=== PATIENT | male | born 1985 | race Two or more races ===

== ENCOUNTER 2020-02-23 21:56 | Inpatient (IN) | payer OTHER ==
[~2020-02-23] VITALS: Ht 165.1 cm; Wt 72.6 kg
[2020-02-23] MEDS ORDERED: PANADOL (22:53)
[2020-02-23] MEDS ORDERED: ADVIL (22:53)
--- NOTE | 2020-02-23 22:54 | NUR ---
PTE SE RECIBE POR VOMITTING CON LISA DIARREAS CON LISA REFIERE PTE.
--- NOTE | 2020-02-23 23:40 | NUR ---
EVALUA PTE. SE ORIENTA A PTE SOBRE TX MEDICO. PTE REFIERE COMPRENDER. SE REALIZAN MUESTRAS DE LABORATORIO BAJO MEDIDAS ASEPTICAS. SE ADMINISTRAN MEDICAMENTOS SWAPNIL ORDEN MEDICA. SE NOTIFICA KENNY X. SE MANTIENE EN OBSERVACION.
--- NOTE | 2020-02-24 02:55 | NUR ---
SE ENCUENTRA A PTE EN JIM PRESENTANDO VOMITOS CON LISA. SE NOTIFICA A LA CUAL INDICA UBICAR A PTE EN MONITOR CARDIACO. SE UBICA A PTE EN MONITOR CARDIACO, SE ADMINISTRA IV'S Y MEDICAMENTOS SWAPNIL ORDEN MEDICA. SE REALIZA CBC Y SE ENVIA AL LABORATORIO. SE EDUCA A PTE SOBRE TX MEDICO. PTE REFIERE COMPRENDER. SE MANTIENE EN OBSERVACION POR CAMBIOS EN CONDICION MEDICA.
--- NOTE | 2020-02-24 03:14 | NUR ---
0314 PACIENTE ALERTA Y ORIENTADO X3. SE ORIENTO SOBRE TX A RECIBIR. SE COMIENZA DRIP DE LSANDOSTATIN 500MCG/100ML 0.9 NSS A BAJAR A 10ML/HR. SE CONTINUA BAJO MONITOREO CARDIACO. SE MANTIEN BAJO OBSERVACION.
--- NOTE | 2020-02-24 05:57 | NUR ---
0453 PACIENTE PRESENTO UN EPISODIOS DE VOMITO CON LISA, SE OBSERVA SUDOROSO Y REFIERE TENER MUCHAS NAUSEAS Y DOLOR DE VERA. PACIENTE CON PULSO ENTRE 114-144/MIN, BP 112/91MMHG Y SATURANDO 99%. SE OBSERVA PACIENTE ANSIOSO. DR. BLUE EVALUA A PACIENTE. 0511 PACIENTE CON BP 77/52MMHG. SE COMIENZA A BAJAR UN PUSH DE 0.9 NSS DE 1,000ML FULL DRIP. MISS. PRINCE REALIZO EKG ORDENADO POR . SE COLOCO CANULA NASAL A 2 LITROS. 0530 SE ADMINISTRO MEDICAMENTO ORDENADOS POR . 0535 MISS. CORNELL INSERTA TUBO NASOGASTRICO EN GIANFRANCO DERECHO, SE VERIFICO PATENTICIDAD AL AUSCULTAR Y POR RESIDUAL GASTRICO DE 260ML CON LISA. PACIENTE CON TUBO NASOGASTRICO A SUCCION INTERMITENTE BAJA. PACIENTE REFIERE SENTIRSE UN POCO MEJOR. PACIENTE BP 149/80MMHG Y PULSO ENTRE 98-112/MIN.
--- NOTE | 2020-02-24 06:27 | NUR ---
PTE PRESENTA EVACUACION DANIELE,MS NIKI LO ASISTE CON USO DE MICHAEL.
--- NOTE | 2020-02-24 07:00 | NUR ---
SE RECIBE D ETURNO ANTERIOR EN UNIDAD DE CHEST PAIN, CAMA #[id number],MASCULINO DE 35 ANOS,ALERTA,ORIENTADO EN MARY ANN DONNY ESFERAS,DESCANANDO EN CAMA NIVEL MAS BAJO CON BARANDAS ELEVADAS,FRENOS,SOLIS DE IDENTIFICACION COLOCADOS POR SEGURIDAD. SE OBSERVA CON BUEN PATRON RESPIRATORIO. TUBO NASOGASTRICO COLOCADO EN FOSA NASAL DERRECHA A SUCCION INTERMITEMTE CON EGRESO DE 100ML LISA. EXTREMIDADES SUPERIORES SE OBSERVAN LIBRES DE S/S EDEMA. VENOPUNCIONES PATENTES EN BRAZO DERECHO, MANO IZQUIERDA, MIMI DE S/S EDEMA Y/O ERITEMA. RECIBIENDO POR MANO IZQUIERDA 0.9%NSS 1,000 ML AT FULL DRIP. RECIBIENDO POR VENOPUNCIONES DE BRAZO DERECHO DRIP SANDOSTATIN 50MCG/100 ML AT 10ML/HR, DRIP PROTONIX 80MG/100ML AT 10ML/HR. EXTREMIDADES INFERIORES SE OBSERVAN LIBRES DE S/S EDEMA. PACIENTE CONSULTADO CON INTERNISTA EN TURNO DR.MUNOZ ALMONTE POR [facility].
== END 2020-02-28 11:48 | disposition home or self-care (01) | DRG 382 ==
LOC: ER 21:56 → MEDJ 02-24 12:28
PROVIDERS: ADMIT Internal Medicine; ATTEND Internal Medicine
PROC: BW21ZZZ Computerized Tomography (CT Scan) of Abdomen and Pelvis (ICD-10-PCS; 2020-02-24)
PROC: 0DJ08ZZ Inspection of Upper Intestinal Tract, Via Natural or Artificial Opening Endoscopic (ICD-10-PCS; principal; 2020-02-26)
PROC: 0FJB8ZZ Inspection of Hepatobiliary Duct, Via Natural or Artificial Opening Endoscopic (ICD-10-PCS; 2020-02-26)
DX: K22.11 Ulcer of esophagus with bleeding (principal); F10.20 Alcohol dependence, uncomplicated; I10 Essential (primary) hypertension; K75.89 Other specified inflammatory liver diseases; K29.70 Gastritis, unspecified, without bleeding; Z20.828 Contact with and (suspected) exposure to other viral communicable diseases

== ENCOUNTER 2020-10-12 15:30 | Emergency (ER) | payer OTHER ==
[~2020-10-12] VITALS: Ht 165.1 cm; Wt 70.8 kg
[~2020-10-12 15:30] MED LIST: ADVIL; PANADOL
== END 2020-10-12 18:51 | disposition home or self-care (01) ==
LOC: ER 15:30
DX: R07.0 Pain in throat (principal)

== ENCOUNTER 2021-02-01 03:45 | Emergency (ER) | payer OTHER ==
[~2021-02-01] VITALS: Ht 165.1 cm; Wt 73.5 kg
[2021-02-01] MEDS ORDERED: COZAAR50 MG (03:59)
[2021-02-01] MEDS ORDERED: NORFLEX100MG PO (06:17)
[2021-02-01] MEDS ORDERED: NAPROXEN375 MG PO (06:17)
[2021-02-01] MEDS ORDERED: MEDROLPACK PO (06:26)
== END 2021-02-01 06:54 | disposition home or self-care (01) ==
LOC: ER 03:45
DX: R55 Syncope and collapse (principal); Z03.818 Encounter for observation for suspected exposure to other biological agents ruled out; I10 Essential (primary) hypertension

== ENCOUNTER 2021-09-14 20:27 | Emergency (ER) | payer OTHER ==
[~2021-09-14] VITALS: Ht 165.1 cm; Wt 76.2 kg
[~2021-09-14 20:27] MED LIST changes: +COZAAR50 MG; +MEDROLPACK PO; +NAPROXEN375 MG PO; +NORFLEX100MG PO
[2021-09-14] MEDS ORDERED: BUPROPION HCL 100 MG (21:42)
[2021-09-14] MEDS ORDERED: FOLIC ACID 1 MG. (21:43)
[2021-09-14] MEDS ORDERED: NORTRIPTYLINE 10 MG (21:44)
[2021-09-14] MEDS ORDERED: TRAZODONE 100 MG (21:45)
[2021-09-14] MEDS ORDERED: RESTORIL30 M1 (21:46)
[2021-09-14] MEDS ORDERED: DICYCLOMINE 20 MG (21:46)
[2021-09-14] MEDS ORDERED: PANTOPRAZOLE SO40 M2 (21:47)
[2021-09-14] MEDS ORDERED: B1 (21:48)
== END 2021-09-15 03:04 | disposition home or self-care (01) ==
LOC: ER 20:27
DX: R07.0 Pain in throat (principal); I10 Essential (primary) hypertension; Z72.0 Tobacco use

== ENCOUNTER 2022-03-22 19:04 | Inpatient (IN) | payer OTHER ==
[~2022-03-22] VITALS: Ht 167.6 cm; Wt 74.8 kg
[~2022-03-22 19:04] MED LIST changes: +B1; +BUPROPION HCL 100 MG; +DICYCLOMINE 20 MG; +FOLIC ACID 1 MG.; +NORTRIPTYLINE 10 MG; +PANTOPRAZOLE SO40 M2; +RESTORIL30 M1; +TRAZODONE 100 MG
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
--- NOTE | 2022-03-22 20:03 | NUR ---
REUBEN SMALL ORIENTA A PTE SOBRE TRATAMIENTO E INSTRUCCIONES A SEGUIR, EL REFIERE ENTENDER. LE COLECTA MUESTRAS, SE CANALIZA Y SE ADMINISTRA MEDICAMENTO WSAPNIL ORDEN MEDICA. PENDIENTE U/A Y CT PO
--- NOTE | 2022-03-23 07:39 | NUR ---
SE RECIBE PTE EN EL AREA DE OBSERVACION PTE ALERTA Y ORIENTADO POR 3 PTE EN CAMA CON BARANDAS ELEVADA Y TIMBRE ACCESIBLE PTE NO PRESENTA DOLOR AL MOMENTO. SE OBSERVA VENOPUNCION PATENTE Y MIMI DE EDEMA, PTE SE MANTIENE EN OBSERVACION Y BAJO TRATAMIENTO POR CAMBIOS, PTE EN ESPERA DEL DR YIP
[2022-03-24] MEDS ORDERED: TRAZODONE HCL100 MG (16:05)
[2022-03-24] MEDS ORDERED: FOLIC ACID1 MG (16:05)
== END 2022-03-27 16:25 | disposition home or self-care (01) | DRG 378 ==
LOC: ER 19:04 → SEC-K 03-23 12:04 → MEDI 03-23 12:04
PROVIDERS: ADMIT Internal Medicine; ATTEND Internal Medicine
DX: K62.5 Hemorrhage of anus and rectum (principal); K51.20 Ulcerative (chronic) proctitis without complications; K70.30 Alcoholic cirrhosis of liver without ascites; D64.9 Anemia, unspecified; K29.60 Other gastritis without bleeding; I10 Essential (primary) hypertension; F32.9 Major depressive disorder, single episode, unspecified; E86.0 Dehydration